=== PATIENT | female | born 1990 | race Hispanic/Latino ===

== ENCOUNTER 2018-08-31 14:44 | Outpatient (CLI) | payer OTHER ==
--- NOTE | 2018-08-31 15:47 | RAD ---
RIGHT FOOT RADIOGRAPHS 3 VIEWS: DATE: 08/31/2018. PROVIDED CLINICAL HISTORY: Right foot pain. FINDINGS: There is no evidence for a fracture or other acute osseous abnormality. Alignment appears anatomic. Joint spaces appear preserved. IMPRESSION: No evidence for an acute osseous abnormality or significant arthropathy. POS: [facility]
== END 2018-08-31 14:45 | disposition home or self-care (01) ==
LOC: RAD-FRANK 14:44
PROVIDERS: ATTEND Nurse Practitioner Family
DX: M79.671 Pain in right foot (principal)